=== PATIENT | male | born 1985 | race Caucasian/White ===

== ENCOUNTER 2020-08-19 11:10 | Emergency (ER) | payer SELFPAY ==
[~2020-08-19] VITALS: Ht 165.1 cm; Wt 82.0 kg
[2020-08-19] MEDS ORDERED: MAGNESIUM/ALUMINUM HYDROXIDE/SIMETHICONE 30ML UDC PO STA (11:59)
[2020-08-19] MEDS ORDERED: VISCOUS LIDOCAINE 2% 15 ML UDC PO STA (11:59)
[2020-08-19] MEDS ORDERED: DICYCLOMINE 10 MG/5 ML ORAL SYR PO STA (11:59)
[2020-08-19 12:14] LABS: CLARITY URINE CLEAR (CLEAR); COLOR URINE YELLOW (YELLOW); KETONES URINE 2+ (NEGATIVE); LEUKOCYTE ESTERASE URINE NEGATIVE (NEGATIVE); NITRITE URINE NEGATIVE (NEGATIVE); OCCULT BLOOD URINE TRACE (NEGATIVE); PH URINE 5.5 (4.5-8.0); PROTEIN URINE 2+ (NEGATIVE); SPECIFIC GRAVITY URINE 1.033 (1.005-1.030)
[2020-08-19] MEDS ORDERED: SODIUM CHLORIDE 0.9% 1,000 ML IV ONE (12:15)
[2020-08-19] MEDS ORDERED: KETOROLAC 30MG/ML VIAL IV ONE (12:15)
[2020-08-19] MEDS ORDERED: ONDANSETRON HCL 4MG/2ML INJ IV ONE (12:15)
[2020-08-19 12:16] LABS: BASOPHILS % 1.3 % (0.0-2.0); HEMATOCRIT. 34.8 % (42.0-52.0); HEMOGLOBIN. 11.2 g/dL (14.0-18.0); MEAN CORPUSCULAR HEMOGLOBIN 20.5 pg (28.0-32.0); MEAN CORPUSCULAR VOLUME 63.6 fL (80.0-94.0); MEAN PLATELET VOLUME 6.8 fl (7.4-10.4); NEUTROPHILS % 43.7 % (40.0-76.0); PLATELET 348 x1000/uL (130-400); RED BLOOD CELL COUNT 5.48 mill/uL (4.7-6.1)
[2020-08-19 12:39] LABS: CHLORIDE 101 mEq/L (98-107)
[2020-08-19 12:47] LABS: PLATELET ESTIMATE NORMAL
[2020-08-19] MEDS ORDERED: MORPHINE SULFATE 10 MG/ML CPJ IM ONE (13:45)
[2020-08-19 14:31] VITALS: BP 140/87
== END 2020-08-19 14:31 | disposition home or self-care (01) ==
LOC: ER 11:34
DX: R10.9 Unspecified abdominal pain (principal); R11.2 Nausea with vomiting, unspecified; E11.9 Type 2 diabetes mellitus without complications; Z87.19 Personal history of other diseases of the digestive system
CPT/HCPCS: 36415; 74176; 80053; 81003; 83690; 85025; 93005; 96361; 96372; 96374; 96375; 99285; J1885; J2270; J2405; J7030